=== PATIENT | female | born 1990 | race Two or more races ===

== ENCOUNTER 2018-06-16 07:22 | Inpatient (IN) | payer OTHER ==
[~2018-06-16] VITALS: Ht 154.9 cm; Wt 77.1 kg
[2018-06-16] MEDS ORDERED: PRENATAL VITAM1 EAC2 PO (10:46)
[2018-06-16] MEDS ORDERED: PROBIOTIC1 EAC4 PO (10:48)
== END 2018-06-19 13:39 | DRG 788 ==
LOC: LDR 07:22 → O/R 18:08 → OB/GYN 20:12 → LDR 06-20 16:10
PROVIDERS: ADMIT Obstetrics & Gynecology
PROC: 4A1HXCZ Monitoring of Products of Conception, Cardiac Rate, External Approach (ICD-10-PCS; 2018-06-16)
PROC: 4A033R1 Measurement of Arterial Saturation, Peripheral, Percutaneous Approach (ICD-10-PCS; 2018-06-16)
PROC: 0UB90ZZ Excision of Uterus, Open Approach (ICD-10-PCS; 2018-06-16)
PROC: 10D00Z1 Extraction of Products of Conception, Low, Open Approach (ICD-10-PCS; principal; 2018-06-16 17:15)
DX: O62.1 Secondary uterine inertia (principal); O34.13 Maternal care for benign tumor of corpus uteri, third trimester; D25.9 Leiomyoma of uterus, unspecified; Z3A.39 39 weeks gestation of pregnancy; Z37.0 Single live birth